=== PATIENT | female | born 1990 | race American Indian/Alaskan Native ===

== ENCOUNTER 2017-04-22 12:37 | Emergency (ER) | payer SELFPAY ==
--- NOTE | 2017-04-22 14:19 | Emergency Department Report ---
Chief Complaint: Abdominal Pain Stated Complaint: NAUSEA/ VOMITING Time Seen by Provider: 04/22/17 14:19 - HPI History of Present Illness: Patient here reports that she has abdominal pain for the last month. Patient states that she's been seen here before and advised to go to a specialist. She says she did not make it to the specialist. She is here today that this pain upper or lower abdomen comes and goes. She said it's mostly located in her mid abdomen. She says she has nausea with some vomiting and when she has the pain. Denies any fever or chills. Denies any vaginal bleeding or discharge. Denies any urinary burning frequency or urgency. Last menstrual cycle was 04/10. Patient has a history of . She has a history of hypertension. - ROS Review of Systems: All systems are negative unless stated in HPI above - Exam Vital Signs: Vital Signs 04/22/17 12:44 Temperature 98.3 F Pulse Rate 120 H Respiratory 18 Rate Blood Pressure 140/78 O2 Sat by Pulse 100 Oximetry Physical Exam: General: This is a 27-year-old female well-nourished well-developed that looks mildly ill. Abdomen: Soft, tender to palpate upper and lower quadrant with positive guarding. Normal bowel sounds in all quadrants. CV: She is tachycardic at 120, S1 and S2. MSE screening note: Focused history and physical exam performed. Due to findings the following was ordered: ED Medical Decision Making - Medical Decision Making MDM: Patient screened by provider in triage area. Appropriate protocol initiated and patient to be seen in main ED by Dr. CONSTANTINO Disposition for MSE Condition: Stable Instructions: Abdominal Pain (ED)
[2017-04-22 15:00] LABS: Bilirubin,Urine NEG (Negative); Blood,Urine NEG (Negative); Ketones,Urine 80 mg/dL (Negative); Leukocyte Esterase,Urine NEG (Negative); Mucus,Urine 3+ /HPF; Nitrite,Urine NEG (Negative); Urobilinogen,Urine < 2.0 mg/dL (<2.0)
[2017-04-22 15:06] LABS: Basophils % (Auto) 0.5 % (0.0-1.8); Eosinophils % (Auto) 0.3 % (0.0-4.3); Hematocrit 40.1 % (30.3-42.9); Hemoglobin 12.9 gm/dl (10.1-14.3); Mean Corpuscular HGB Conc 32 % (30-34); Mean Corpuscular Volume 79 fl (79-97); Platelet Count 332 K/mm3 (140-440); Red Blood Count 5.08 M/mm3 (3.65-5.03); Red Cell Distribution Width 14.2 % (13.2-15.2); White Blood Count 6.2 K/mm3 (4.5-11.0)
[2017-04-22 15:12] LABS: Alanine Aminotransferase 8 units/L (7-56); Albumin 4.3 g/dL (3.9-5); Albumin/Globulin Ratio 1.4 %; Alkaline Phosphatase 114 units/L (35-129); Anion Gap 20 mmol/L; BUN/Creatinine Ratio 20; Blood Urea Nitrogen 8 mg/dL (7-17); Calcium 9.7 mg/dL (8.4-10.2); Carbon Dioxide 24 mmol/L (22-30); Chloride 102.5 mmol/L (98-107); Glucose 89 mg/dL (65-100); Lipase 16 units/L (13-60); Potassium 4.1 mmol/L (3.6-5.0); Sodium 142 mmol/L (137-145); Total Protein 7.4 g/dL (6.3-8.2)
[2017-04-22 15:36] LABS: Mean Corpuscular Hemoglobin 25 pg (28-32)
[2017-04-22] MEDS ORDERED: DILAUDID IV ONE (19:32)
[2017-04-22] MEDS ORDERED: NACL 0.9% 1000 ML 1,000 ML IV ONE (19:32)
[2017-04-22] MEDS ORDERED: REGLAN IV ONE (19:32)
--- NOTE | 2017-04-22 19:37 | Emergency Department Report ---
ED Abdominal Pain HPI - General Chief Complaint: Abdominal Pain Stated Complaint: NAUSEA/ VOMITING Time Seen by Provider: 04/22/17 14:19 Source: patient Mode of arrival: Ambulatory Limitations: No Limitations - History of Present Illness MD Complaint: abdominal pain -: Gradual Location: diffuse Migration to: no migration Severity: moderate Severity scale (0 -10): 8 Quality: stabbing Improves With: vomiting Worsens With: eating Associated Symptoms: nausea, vomiting - Related Data Home Medications Medication Instructions Recorded Confirmed Last Taken No Known Home Medications [No 04/22/17 04/22/17 Unknown Reported Home Medications] Allergies Allergy/AdvReac Type Severity Reaction Status Date / Time No Known Allergies Allergy Verified 04/22/17 12:49 ED Review of Systems ROS: Stated complaint: NAUSEA/ VOMITING Other details as noted in HPI Comment: All other systems reviewed and negative Constitutional: denies: chills, fever Respiratory: denies: cough, orthopnea, shortness of breath Cardiovascular: palpitations. denies: chest pain, dyspnea on exertion Gastrointestinal: abdominal pain, nausea, vomiting. denies: diarrhea, constipation, hematemesis, melena, hematochezia Genitourinary: denies: urgency, dysuria, frequency, hematuria Skin: denies: rash, lesions Neurological: denies: headache, weakness, numbness, paresthesias ED Past Medical Hx - Past Medical History Previous Medical History?: Yes Hx Hypertension: Yes - Surgical History Past Surgical History?: Yes Additional Surgical History: , ear - Social History Smoking Status: Former Smoker Substance Use Type: None - Medications Home Medications: Home Medications Medication Instructions Recorded Confirmed Last Taken Type No Known Home Medications [No 04/22/17 04/22/17 Unknown History Reported Home Medications] ED Physical Exam - General Limitations: No Limitations General appearance: alert, other (patient is actively vomiting) - Head Head exam: Present: atraumatic, normocephalic, normal inspection - Eye Eye exam: Present: normal appearance - ENT ENT exam: Present: normal exam, normal orophraynx, mucous membranes dry - Neck Neck exam: Present: normal inspection. Absent: tenderness - Respiratory Respiratory exam: Present: normal lung sounds bilaterally. Absent: respiratory distress, wheezes, rales, rhonchi, stridor, chest wall tenderness, accessory muscle use, decreased breath sounds, prolonged expiratory - Cardiovascular Cardiovascular Exam: Present: regular rate, normal heart sounds. Absent: normal rhythm - GI/Abdominal GI/Abdominal exam: Present: soft, tenderness, normal bowel sounds. Absent: distended, guarding, rebound, rigid, organomegaly, mass, bruit, pulsatile mass, hernia - Extremities Exam Extremities exam: Present: normal inspection, normal capillary refill - Back Exam Back exam: Present: normal inspection. Absent: tenderness, CVA tenderness (R), CVA tenderness (L), muscle spasm, paraspinal tenderness, vertebral tenderness - Neurological Exam Neurological exam: Present: alert, oriented X3, CN II-XII intact, normal gait - Skin Skin exam: Present: warm, dry, intact ED Course Vital Signs 04/22/17 04/22/17 12:44 20:00 Temperature 98.3 F 98.8 F Pulse Rate 120 H 96 H Respiratory 18 20 Rate Blood Pressure 140/78 Blood Pressure 146/74 [Left] O2 Sat by Pulse 100 98 Oximetry - Reevaluation(s) Reevaluation #1: 04/22/17 22:14 Patient stated that she is feeling much better no nausea no vomiting no abdominal pain. ED Medical Decision Making - Lab Data Result diagrams: 04/22/17 14:40 04/22/17 14:40 - Radiology Data Radiology results: report reviewed CT abdomen and pelvis showed a 2.5 right adnexal cyst. No other acute abnormality. Critical care attestation.: If time is entered above; I have spent that time in minutes in the direct care of this critically ill patient, excluding procedure time. ED Disposition Clinical Impression: Abdominal pain, Vomiting, Gastritis Disposition: -01 TO HOME OR SELFCARE Is pt being admited?: No Condition: Stable Instructions: Abdominal Pain (ED), Gastritis (ED), Ovarian Cyst (ED) Referrals: PRIMARY CARE, [Primary Care Provider] - 3-5 Days
[2017-04-22] MEDS ORDERED: PROTONIX IV ONE (20:00)
--- NOTE | 2017-04-22 21:49 | Cat Scan Report ---
FINAL REPORT EXAM: CT ABDOMEN PELVIS W CON HISTORY: abdominal pain TECHNIQUE: CT abdomen and pelvis with intravenous contrast PRIORS: None. FINDINGS: No acute abnormality identified in the lung bases. No focal abnormality identified within the liver parenchyma. The spleen demonstrates normal size and attenuation. No pancreatic abnormalities seen. The kidneys demonstrate symmetric contrast enhancement. No evidence of hydronephrosis. The adrenal glands are unremarkable Abdominal aorta is normal in caliber. No pathologically enlarged lymph nodes are identified. No signs of free fluid or free air No evidence of small bowel dilatation. Colon is nondistended. No pericolonic inflammatory change. Appendix is not definitively identified. There is a 2.8 centimeter right adnexal cyst posterior to the uterus Urinary bladder is unremarkable. IMPRESSION: 2.5 centimeter right adnexal cyst
[2017-04-22 23:14] VITALS: BP 130/72
== END 2017-04-22 23:13 | disposition home or self-care (01) ==
LOC: ED 12:37
DX: K29.70 Gastritis, unspecified, without bleeding (principal); I10 Essential (primary) hypertension; Z87.891 Personal history of nicotine dependence
CPT/HCPCS: 36415; 74177; 80053; 81001; 83690; 84703; 85025; 96361; 96374; 96375; 99284; C9113; J1170; J2765; J7030; Q9967

== ENCOUNTER 2017-08-26 05:05 | Emergency (ER) | payer SELFPAY ==
[2017-08-26] MEDS ORDERED: TORADOL IV ONE (06:00)
[2017-08-26] MEDS ORDERED: ZOFRAN IV ONE (06:00)
[2017-08-26 06:44] LABS: Basophils % (Auto) 0.3 % (0.0-1.8); Eosinophils % (Auto) 0.5 % (0.0-4.3); Hemoglobin 13.6 gm/dl (10.1-14.3); Lymphocytes # (Auto) 0.8 K/mm3 (1.2-5.4); Lymphocytes % (Auto) 12.6 % (13.4-35.0); Mean Corpuscular HGB Conc 33 % (30-34); Mean Corpuscular Volume 78 fl (79-97); Monocytes # (Auto) 0.4 K/mm3 (0.0-0.8); Monocytes % (Auto) 6.4 % (0.0-7.3); Platelet Count 308 K/mm3 (140-440); Red Blood Count 5.26 M/mm3 (3.65-5.03); Red Cell Distribution Width 14.3 % (13.2-15.2)
[2017-08-26 06:53] LABS: Mean Corpuscular Hemoglobin 26 pg (28-32)
[2017-08-26 06:57] LABS: BUN/Creatinine Ratio 12; Blood Urea Nitrogen 6 mg/dL (7-17); Calcium 9.5 mg/dL (8.4-10.2); Hemolysis Index 8
[2017-08-26 07:41] VITALS: BP 153/88
[2017-08-26] MEDS ORDERED: MORPHINE IV ONE (07:57)
[2017-08-26] MEDS ORDERED: NACL 0.9% 1000 ML 1,000 ML IV ONE (07:57)
--- NOTE | 2017-08-26 07:58 | Emergency Department Report ---
HPI - General Chief Complaint: Abdominal Pain Time Seen by Provider: 08/26/17 07:13 - HPI HPI: 27-year-old female presents to the emergency department, dropped off by her brother to be seen, with complaint of generalized abdominal pain with some nausea and vomiting has been going on since yesterday. She denies any past history. She did not take anything for her symptoms prior to presentation. Currently she says the pain is slightly improved at 7 out of 10 in intensity. She denies any fever, vaginal bleeding or discharge, dysuria, back pain. No recent travel or sick contacts at home. She does not have a primary care physician. ED Past Medical Hx - Past Medical History Hx Hypertension: Yes Additional medical history: Ovarian Cyst - Surgical History Additional Surgical History: , ear - Social History Smoking Status: Never Smoker Substance Use Type: None - Medications Home Medications: Home Medications Medication Instructions Recorded Confirmed Last Taken Type Famotidine [Pepcid] 40 mg PO QHS #30 tablet 04/22/17 Unknown Rx Naproxen [Naprosyn] 500 mg PO BID #14 tablet 04/22/17 Unknown Rx Promethazine [Phenergan] 25 mg LA TID PRN #30 supp.rect 04/22/17 Unknown Rx traMADol [Ultram 50 MG tab] 50 mg PO Q4HR PRN #14 tablet 04/22/17 Unknown Rx ED Review of Systems ROS: Stated complaint: ABDOMINAL PAIN Other details as noted in HPI Comment: All other systems reviewed and negative Constitutional: denies: chills, fever Eyes: denies: eye pain, eye discharge, vision change ENT: denies: ear pain, throat pain Respiratory: denies: cough, shortness of breath, wheezing Cardiovascular: denies: chest pain, palpitations Gastrointestinal: abdominal pain, nausea, vomiting Genitourinary: denies: urgency, dysuria, discharge Musculoskeletal: denies: back pain, joint swelling, arthralgia Skin: denies: rash, lesions Neurological: denies: headache, weakness, paresthesias Physical Exam - Physical Exam Vital Signs: Vital Signs 08/26/17 08/26/17 08/26/17 05:13 05:56 07:40 Temperature 98.9 F 98.9 F 98.9 F Pulse Rate 96 H 85 78 Respiratory 18 16 16 Rate Blood Pressure 146/85 146/85 Blood Pressure 153/88 [Left] O2 Sat by Pulse 99 100 99 Oximetry 08/26/17 07:41 Temperature Pulse Rate Respiratory 16 Rate Blood Pressure Blood Pressure [Left] O2 Sat by Pulse 100 Oximetry Physical Exam: GENERAL: The patient is well-developed well-nourished. HENT: Normocephalic. Atraumatic. Patient has moist mucous membranes. EYES: Extraocular motions are intact. Pupils equal reactive to light bilaterally. NECK: Supple. Trachea is midline. CHEST/LUNGS: Clear to auscultation. There is no respiratory distress noted. HEART/CARDIOVASCULAR: Regular. There is no tachycardia. There is no murmur. ABDOMEN: Abdomen is soft. There is left-sided tenderness to palpation. No guarding. Patient has normal bowel sounds. There is no abdominal distention. SKIN: There is no rash. There is no edema. There is no diaphoresis. NEURO: The patient is awake, alert, and oriented. The patient is cooperative. The patient has no focal neurologic deficits. The patient has normal speech and gait. MUSCULOSKELETAL: There is no tenderness or deformity. There is no limitation range of motion. There is no evidence of acute injury. ED Course Vital Signs 08/26/17 08/26/17 08/26/17 05:13 05:56 07:40 Temperature 98.9 F 98.9 F 98.9 F Pulse Rate 96 H 85 78 Respiratory 18 16 16 Rate Blood Pressure 146/85 146/85 Blood Pressure 153/88 [Left] O2 Sat by Pulse 99 100 99 Oximetry 08/26/17 07:41 Temperature Pulse Rate Respiratory 16 Rate Blood Pressure Blood Pressure [Left] O2 Sat by Pulse 100 Oximetry ED Medical Decision Making - Lab Data Result diagrams: 08/26/17 06:22 08/26/17 06:22 - Radiology Data Radiology results: report reviewed, image reviewed interpreted by me: Abdominal x-ray shows nonspecific nonobstructive bowel gas. CT ABDOMEN PELVIS WITH CONTRAST: HISTORY: Abdominal pain. COMPARISON: 04/22/17. TECHNIQUE: Helical CT in 1.25mm intervals following IV contrast. Sagittal and coronal reconstructions. FINDINGS: Lung bases: Normal. Liver: Normal. Biliary system: Normal. Pancreas: Normal. Spleen: Normal. Kidneys/ureters/bladder: Normal. Adrenal glands: Normal. Aorta: Normal. Intestines: Within normal limits given no oral contrast was administered. Appendix: Not confidently identified, correlate with surgical history. Pelvic viscera: Normal. Ascites: Trace pelvic ascites. Adenopathy: None. Musculoskeletal: Normal. IMPRESSION: No acute inflammatory process is identified in the abdomen or pelvis. Transcribed By: TTR Dictated By: ZEE LOZADA JR, MD Electronically Authenticated By: ZEE LOZADA JR, MD Signed Date/Time: 08/26/17 1002 - Medical Decision Making Patient presents with some abdominal pain that she says is generalized. On examination it appears to be mostly left-sided. She does not have a toxic or rigid abdomen. Labs are unremarkable. Abdominal x-ray was read as gastroenteritis versus mild ileus. To further differentiate this, a CT scan of the abdomen and pelvis was done that came back showing no acute process. Patient was reevaluated multiple times of the multiple hours and says she is feeling much better. She will follow up with a primary care physician and will return to the ER with any worsening or symptoms or any acute distress. - Differential Diagnosis gastroenteritis, diverticulitis, colitis, ileus, bowel obstruction Critical Care Time: No Critical care attestation.: If time is entered above; I have spent that time in minutes in the direct care of this critically ill patient, excluding procedure time. ED Disposition Clinical Impression: Abdominal pain Qualifiers: Abdominal location: generalized Qualified Code(s): R10.84 - Generalized abdominal pain Disposition: - TO HOME OR SELFCARE Is pt being admited?: No Condition: Stable Instructions: Abdominal Pain (ED) Additional Instructions: Please follow up with a primary care physician in the next few days. Return to the emergency Department with any worsening of your symptoms or any acute distress. Referrals: DAVY ANN MD [Staff Physician] - 3-5 Days PRIMARY CARE, [Primary Care Provider] - 3-5 Days Time of Disposition: 10:24
--- NOTE | 2017-08-26 08:23 | XRay Report ---
ABDOMEN, 2 VIEWS: History: Abdominal pain. Findings: Multiple small air-fluid levels are identified throughout the abdomen. No dilated bowel or free air is identified. No pathologic calcifications. Normal stool in the colon. Heart and mediastinal structures are normal. The lung russo are clear. Impression: Findings consistent with gastroenteritis or a mild diffuse ileus. No acute abdominal findings.
[2017-08-26 09:30] LABS: Mucus,Urine FEW /HPF
[2017-08-26 09:45] LABS: Bilirubin,Urine NEG (Negative); Blood,Urine NEG (Negative); Color,Urine Yellow (Yellow); Protein,Urine <15 mg/dL mg/dL (Negative); Urobilinogen,Urine < 2.0 mg/dL (<2.0)
--- NOTE | 2017-08-26 10:09 | Cat Scan Report ---
CT ABDOMEN PELVIS WITH CONTRAST: HISTORY: Abdominal pain. COMPARISON: 04/22/17. TECHNIQUE: Helical CT in 1.25mm intervals following IV contrast. Sagittal and coronal reconstructions. FINDINGS: Lung bases: Normal. Liver: Normal. Biliary system: Normal. Pancreas: Normal. Spleen: Normal. Kidneys/ureters/bladder: Normal. Adrenal glands: Normal. Aorta: Normal. Intestines: Within normal limits given no oral contrast was administered. Appendix: Not confidently identified, correlate with surgical history. Pelvic viscera: Normal. Ascites: Trace pelvic ascites. Adenopathy: None. Musculoskeletal: Normal. IMPRESSION: No acute inflammatory process is identified in the abdomen or pelvis.
== END 2017-08-26 10:54 | disposition home or self-care (01) ==
LOC: ED 05:05
DX: R10.84 Generalized abdominal pain (principal); R11.2 Nausea with vomiting, unspecified; I10 Essential (primary) hypertension
CPT/HCPCS: 36415; 74019; 74177; 80048; 81001; 84703; 85025; 96361; 96374; 96375; 99284; J1885; J2270; J7030; Q9967

== ENCOUNTER 2017-09-15 14:44 | Emergency (ER) | payer OTHER ==
[2017-09-15 15:16] VITALS: BP 137/86
[2017-09-15 15:43] LABS: Basophils % (Auto) 0.5 % (0.0-1.8); Eosinophils % (Auto) 0.1 % (0.0-4.3); Hematocrit 42.2 % (30.3-42.9); Hemoglobin 13.6 gm/dl (10.1-14.3); Lymphocytes # (Auto) 0.5 K/mm3 (1.2-5.4); Lymphocytes % (Auto) 6.6 % (13.4-35.0); Mean Corpuscular HGB Conc 32 % (30-34); Mean Corpuscular Volume 80 fl (79-97); Monocytes # (Auto) 0.3 K/mm3 (0.0-0.8); Monocytes % (Auto) 3.9 % (0.0-7.3); Platelet Count 355 K/mm3 (140-440); Red Blood Count 5.27 M/mm3 (3.65-5.03); Red Cell Distribution Width 15.8 % (13.2-15.2)
[2017-09-15 15:47] LABS: Mean Corpuscular Hemoglobin 26 pg (28-32)
[2017-09-15 15:49] LABS: Bilirubin,Urine NEG (Negative); Blood,Urine LG (Negative); Color,Urine Yellow (Yellow); Mucus,Urine 1+ /HPF; Protein,Urine <15 mg/dL mg/dL (Negative)
[2017-09-15 15:51] LABS: RBC,Urine > 135.0 /HPF (0.0-6.0)
[2017-09-15 16:07] LABS: Alanine Aminotransferase 14 units/L (7-56); Albumin 4.3 g/dL (3.9-5); BUN/Creatinine Ratio 18; Blood Urea Nitrogen 7 mg/dL (7-17); Calcium 9.3 mg/dL (8.4-10.2); Hemolysis Index 0
== END 2017-09-15 15:29 | disposition left against medical advice (07) ==
LOC: ED 14:44
DX: R10.9 Unspecified abdominal pain (principal); Z53.21 Procedure and treatment not carried out due to patient leaving prior to being seen by health care provider
CPT/HCPCS: 36415; 80053; 81001; 85025